=== PATIENT | female | born 1970 | race Caucasian/White ===

== ENCOUNTER 2017-09-27 06:33 | Emergency (ER) | payer BC, OTHER ==
[2017-09-27] MEDS ORDERED: Ondansetron 4 MG Tab.DIS PO ONE (06:47)
[2017-09-27] MEDS ORDERED: Metoclopramide 10 MG/2 ML SDV IVPUSH ONE (07:09)
--- NOTE | 2017-09-27 07:13 | EDM.PDOC ---
ED HPI GENERAL MEDICAL PROBLEM - General Chief Complaint: Gastrointestinal Problem Stated Complaint: VOMITING AND ABD PAIN Time Seen by Provider: 09/27/17 07:08 Source of Information: Reports: Patient, Family (spouse) History Limitations: Reports: No Limitations - History of Present Illness INITIAL COMMENTS - FREE TEXT/NARRATIVE: 47-year-old female presents to the ED with acute onset of nausea and vomiting of primarily bilious material since about 1:30 this morning. They're traveling from [place] back to [place]. She believes she may have gotten into some bad food at dinnertime yesterday eating a salad with salad dressing. They both her and her had the same supper last night and he is not ill. Associated chills ,lightheadedness and dizziness. She is also got small quantity diarrhea. She states yellow fluid per rectum but small quantities only 2. Estimates emesis 5 or 6 without blood. The stool do not contain any blood either. She has some upper epigastric pain from vomiting. She's had no previous abdominal surgeries. Dr. Mcdaniels had administered Zofran 4 mg sublingually about 20 minutes ago and she started to feel her stomach settled we bit. Vital signs are stable at this time. Of note patient reports she had a migraine headache yesterday for which she took a quarter of a Percocet tablet which seemed to relieve her headache. She has no headache at this time. Onset: Today Onset Date: 09/27/17 Onset Time: 01:30 Duration: Minutes: Location: Reports: Abdomen (Nausea vomiting and diarrhea) Quality: Reports: Other Severity: Moderate (Aching discomfort in the epigastrium for 10.) Improves with: Reports: None Worsens with: Reports: None Context: Reports: Other (Spontaneous onset of nausea and vomiting about 1:30 this morning. Associated mild diarrhea.). Denies: Activity, Exercise, Lifting, Sick Contact, Trauma Associated Symptoms: Reports: Fever/Chills, Loss of Appetite, Malaise, Nausea/ Vomiting, Weakness, Other. Denies: Chest Pain, Cough, cough w sputum, Diaphoresis (Chills but no fever), Headaches, Rash, Seizure, Shortness of Breath , Syncope Treatments CAMPAIGN MARKETING MANAGER: Reports: Other (see below) (None.) Abdominal Pain Score (Numeric/FACES): 7 - Related Data Allergies Allergy/AdvReac Type Severity Reaction Status Date / Time morphine Allergy Tachycardia Verified 09/27/17 06:42 narcotics Allergy Tachycardia Uncoded 09/27/17 06:43 Home Meds: Home Meds Levothyroxine [Sythroid] 100 mcg PO DAILY 09/27/17 [History] Testosterone [Testopel] 75 mcg PO DAILY 09/27/17 [History] Past Medical History Endocrine/Metabolic History: Reports: Hyperthyroidism Other Endocrine/Metabolic History: low testosterone - Past Surgical History Female Surgical History: Reports: Breast Implant Dermatological Surgical History: Reports: Plastic Surgical Reconstruction/Repair Social & Family History - Tobacco Use Smoking Status *Q: Never Smoker - Recreational Drug Use Recreational Drug Use: No - Living Situation & Occupation Living situation: Reports: Single, with Significant Other Occupation: Employed ED ROS GENERAL - Review of Systems Review Of Systems: See Below Constitutional: Reports: Chills, Malaise, Weakness, Fatigue, Decreased Appetite HEENT: Reports: No Symptoms Respiratory: Reports: No Symptoms Cardiovascular: Reports: No Symptoms Endocrine: Reports: Fatigue GI/Abdominal: Reports: Abdominal Pain (Mild epigastric discomfort.), Diarrhea ( Has had 2 loose yellowish stools overnight.), Nausea, Vomiting. Denies: Constipation : Reports: No Symptoms (Vomiting about 6 times overnight with bilious emesis.) Musculoskeletal: Reports: No Symptoms Skin: Reports: No Symptoms Neurological: Reports: No Symptoms Psychiatric: Reports: No Symptoms Hematologic/Lymphatic: Reports: No Symptoms Immunologic: Reports: No Symptoms ED EXAM, GI/ABD - Physical Exam Exam: See Below Exam Limited By: No Limitations General Appearance: Alert, WD/WN, No Apparent Distress Eyes: Bilateral: Normal Appearance Throat/Mouth: Normal Lips, Normal Teeth, Other (Tongue is mildly dry.) Head: Atraumatic, Normocephalic Neck: Normal Inspection, Supple, Non-Tender, Full Range of Motion. No: Lymphadenopathy (L) Respiratory/Chest: No Respiratory Distress, Lungs Clear, Normal Breath Sounds, No Accessory Muscle Use, Chest Non-Tender Cardiovascular: Normal Peripheral Pulses, Regular Rate, Rhythm, No Edema, No Gallop, No Murmur, No Rub GI/Abdominal Exam: Normal Bowel Sounds, No Organomegaly (Tenderness in the epigastrium which appears to be muscular.), No Abnormal Bruit, No Mass, Pelvis Stable, Tender Back Exam: Normal Inspection, Full Range of Motion. No: CVA Tenderness (L), CVA Tenderness (R) Extremities: Normal Inspection, Normal Range of Motion, Non-Tender, No Pedal Edema Neurological: Alert, Oriented, CN II-XII Intact, Normal Cognition, Normal Gait Psychiatric: Normal Affect, Normal Mood Skin Exam: Warm, Dry, Intact, Normal Color, No Rash Course - Vital Signs Last Recorded V/S: Last Vital Signs Temp 36.9 C 09/27/17 06:44 Pulse 92 09/27/17 06:44 Resp 18 09/27/17 06:44 BP 112/72 09/27/17 06:44 Pulse Ox 100 09/27/17 06:44 - Orders/Labs/Meds Orders: Active Orders 24 hr Category Date Time Status URINALYSIS W/MICROSCOPIC [UA W/MICROSCOPIC] [URIN] Stat Lab 09/27/17 08:00 Ordered Labs: Laboratory Tests 09/27/17 09/27/17 09/27/17 Range/Units 07:30 07:30 08:00 WBC 24.49 H (3.98-10.04) K/mm3 RBC 4.70 (3.98-5.22) M/mm3 Hgb 14.6 (11.2-15.7) gm/L Hct 43.4 (34.1-44.9) % MCV 92.3 (79.4-94.8) fl MCH 31.1 (25.6-32.2) pg MCHC 33.6 (32.2-35.5) g/dl RDW Std Deviation 38.8 (36.4-46.3) fL Plt Count 364 (182-369) K/mm3 MPV 9.5 (9.4-12.3) fl Neutrophils % (Manual) 90 H (40-60) % Band Neutrophils % 2 (0-10) % Lymphocytes % (Manual) 8 L (20-40) % Atypical Lymphs % 0 % Monocytes % (Manual) 0 L (2-10) % Eosinophils % (Manual) 0 L (0.7-5.8) % Basophils % (Manual) 0 L (0.1-1.2) Differential Comment See note Toxic Granulation 1+ slight Platelet Estimate Adequate RBC Morph Comment Normal Sodium 142 (136-145) mEq/L Potassium 4.1 (3.5-5.1) mEq/L Chloride 106 (98-107) mEq/L Carbon Dioxide 26 (21-32) mEq/L Anion Gap 14.1 (5-15) BUN 15 (7-18) mg/dL Creatinine 1.0 (0.55-1.02) mg/dL Est Cr Clr Drug Dosing 59.41 mL/min Estimated GFR (MDRD) 59 (>60) mL/min BUN/Creatinine Ratio 15.0 (14-18) Glucose 100 (74-106) mg/dL Calcium 8.9 (8.5-10.1) mg/dL Total Bilirubin 0.5 (0.2-1.0) mg/dL AST 23 (15-37) U/L ALT 27 (14-59) U/L Alkaline Phosphatase 67 (46-116) U/L C-Reactive Protein < 0.2 (<1.0) mg/dL Total Protein 7.7 (6.4-8.2) g/dl Albumin 3.8 (3.4-5.0) g/dl Globulin 3.9 gm/dL Albumin/Globulin Ratio 1.0 (1-2) Urine Color Yellow (Yellow) Urine Appearance Clear (Clear) Urine pH 6.5 (5.0-8.0) Ur Specific Matthews 1.020 (1.005-1.030) Urine Protein Negative (Negative) Urine Glucose (UA) 2+ H (Negative) Urine Ketones Negative (Negative) Urine Occult Blood 2+ H (Negative) Urine Nitrite Negative (Negative) Urine Bilirubin Negative (Negative) Urine Urobilinogen 0.2 (0.2-1.0) Ur Leukocyte Esterase Trace H (Negative) Urine RBC 5-10 H (0-5) /hpf Urine WBC 0-5 (0-5) /hpf Ur Epithelial Cells 0-5 (0-5) /hpf Urine Bacteria Few (FEW) /hpf Urine Mucus Few (FEW) /hpf Meds: Medications Discontinued Medications Generic Name Dose Route Start Last Admin Trade Name Freq PRN Reason Stop Dose Admin Dextrose/Lactated Ringer's 1,000 mls @ 999 mls/hr 09/27/17 07:15 09/27/17 07: 32 Dextrose 5%-Lactated Ringers IV 999 mls/hr ASDIRECTED BERKLEY Administration Metoclopramide HCl 5 mg 09/27/17 07:09 09/27/17 07:30 Reglan IVPUSH 09/27/17 07:10 5 mg ONETIME ONE Administration Ondansetron HCl 4 mg 09/27/17 06:47 09/27/17 06:51 Zofran Odt PO 09/27/17 06:48 4 mg ONETIME ONE Administration - Radiology Interpretation Free Text/Narrative:: 47-year-old female traveling from [place] back to [place] presents to the ED due to acute onset of nausea vomiting and some diarrhea overnight. Symptoms started about 1:30 this morning. She estimated she's vomited 5-6 times of bilious emesis. 2 small quantity yellowish stools. Nose significant abdominal cramping pain. Some chills. Concern is for possible foodborne illness from eating out yesterday at dinnertime. Plan Zofran 4 mg sublingual has been given by Dr. Mcdaniels about a half an hour ago. I will give her D5 Ringer's lactate at open. Reglan 5 mg IV. Routine labs to be done. - Re-Assessments/Exams Free Text/Narrative Re-Assessment/Exam: 09/27/17 08:23 White count is found to be elevated at 24.49 with a left shift of 90% neutrophils and 2% band cells reported. Hemoglobin is 14.6 with hematocrit of 43.4. Telemetry count is 13 64,000. Sodium is 142 with potassium of 4.1. Chloride is 106 with a bicarbonate of 26. Anion gap is 14.1 with a BUN of 15. Creatinine is 1.0. GFR is 59. Glucose is 100. Calcium is 8.9 total bilirubin is 0.5. Liver function normal. C-reactive protein is less than 0.2. The remainder of the micro-of the urinalysis shows 5-10 RBCs per high power field but no significant white cells to suggest an infective process. I cannot explain the 2+ glucosuria appreciated on dip. 09/27/17 08:25 Suspect foodborne illness with significant stress response from vomiting with an elevated white count and left shift. She remains afebrile. We' ll place her on Zofran 4 mg sublingually every 4-6 hours as necessary for nausea relief. Clear fluids such as Gatorade or Powerade and light diet for the next day or so. Suspect toxin borne illness or foodborne illness as a cause of her current illness. Departure - Departure Time of Disposition: 08:25 Disposition: Home, Self-Care 01 Condition: Fair Clinical Impression: Foodborne gastroenteritis - Discharge Information *PRESCRIPTION DRUG MONITORING PROGRAM REVIEWED*: Not Applicable *COPY OF PRESCRIPTION DRUG MONITORING REPORT IN PATIENT JACQUELYN: Not Applicable Instructions: Food Poisoning Referrals: PCP,Not In Area [Primary Care Provider] - Forms: ED Department Discharge Additional Instructions: Evaluation the emergency room this morning due to nausea and vomiting that occurred during the night with associated mild diarrhea. It appears that current illnesses likely foodborne related in terms that you likely picked up a toxin and food yesterday that caused her current illness. It could also be viral over with an elevated white count at suggests foodborne illness with a significant stress response. None of the other lab tests were abnormal. You're treated with a liter of IV fluids in the ED to rehydrate you. You were given Zofran 4 mg sublingually and Reglan 5 mg IV for nausea relief. Treatment today should be Zofran 4 mg of the tongue every 4-6 hours as necessary for relief of nausea or vomiting. Clear fluids primarily Gatorade/Powerade 4-5 ounces sipped per hour. When hungry try soda crackers first. If tolerated then may try soup primarily broth soup such as chicken turkey rice/chicken noodle etc. Of course Jell-O, popsicles, other juices are usually well tolerated as well. Chest suggest avoiding all dairy products and no apple or grape juice until stools are formed back up. Expect return to normal ability to eat in 36-48 hours time. - My Orders Last 24 Hours: My Active Orders 09/27/17 08:00 URINALYSIS W/MICROSCOPIC [UA W/MICROSCOPIC] [URIN] Stat - Assessment/Plan Last 24 Hours: My Active Orders 09/27/17 08:00 URINALYSIS W/MICROSCOPIC [UA W/MICROSCOPIC] [URIN] Stat
[2017-09-27] MEDS ORDERED: Dextrose 5%-Lactated Ringers 1,000 ML IV SCH (07:15)
== END 2017-09-27 08:36 | disposition home or self-care (01) ==
LOC: JD.ED 06:33
DX: K52.89 Other specified noninfective gastroenteritis and colitis (principal); E03.9 Hypothyroidism, unspecified; Z88.5 Allergy status to narcotic agent; Z79.899 Other long term (current) drug therapy
CPT/HCPCS: 36415; 80053; 81001; 85007; 85027; 86140; 96361; 96374; 99284; A9270; J2765; J7042